=== PATIENT | female | born 1985 | race African-American/Black ===

== ENCOUNTER 2023-12-16 13:39 | Emergency (ER) | payer BC, MEDICAID, OTHER ==
[~2023-12-16] VITALS: Ht 167.6 cm; Wt 81.0 kg
[2023-12-16 13:41] VITALS: O2SAT 99
[2023-12-16 14:10] LABS: BASOPHILS % 0.3 % (0.0-2.0); HEMATOCRIT. 44.4 % (36.0-48.0); HEMOGLOBIN. 14.7 g/dL (12.0-16.0); LYMPHOCYTES % 21.2 % (20.0-50.0); MEAN CORPUSCULAR HEMOGLOBIN 31.1 pg (28.0-32.0); MEAN CORPUSCULAR HGB CONC 33.2 g/dL (31.0-37.0); MEAN CORPUSCULAR VOLUME 93.8 fL (81.0-99.0); MEAN PLATELET VOLUME 8.4 fl (7.4-10.4); MONOCYTES % 4.9 % (2.0-8.0); NEUTROPHILS % 72.6 % (40.0-76.0); PLATELET 235 x1000/uL (130-400); RED BLOOD CELL COUNT 4.73 mill/uL (4.2-5.4); RED CELL DISTRIBUTION WIDTH 15.2 % (11.6-14.6); WHITE BLOOD COUNT 10.6 x1000/uL (4.5-11.0)
[2023-12-16] MEDS: ONDANSETRON HCL 4MG/2ML INJ IV STA (14:15)
[2023-12-16] MEDS: SODIUM CHLORIDE 0.9% 1,000 ML IV ONE (14:15)
[2023-12-16] MEDS: FAMOTIDINE 20MG/2ML VIAL IV STA (14:15)
[2023-12-16 14:48] LABS: HCG SCREEN NEGATIVE
[2023-12-16] MEDS: KETOROLAC 30MG/ML VIAL IV ONE (14:55)
[2023-12-16 15:26] LABS: INR 1.1
[2023-12-16 15:37] LABS: ALANINE AMINOTRANSFERASE 45 IU/L (10-49); ALBUMIN 4.5 g/dL (3.2-4.8); ASPARTATE AMINOTRANSFERASE 93 IU/L (<34); CALCIUM 8.9 mg/dL (8.7-10.4); CARBON DIOXIDE 26 mEq/L (21-32); CHLORIDE 105 mEq/L (98-107); CREATININE 0.7 mg/dL (0.6-1.0); GLUCOSE 76 mg/dL (70-105); POTASSIUM 3.9 mEq/L (3.5-5.1); PROTEIN TOTAL 7.4 g/dL (6.0-8.3); SODIUM 139 mEq/L (136-145); UREA NITROGEN BLOOD 12 mg/dL (9-23)
[2023-12-16] MEDS ORDERED: PROT40 MT (17:23)
[2023-12-16] MEDS ORDERED: TRAZ-251 MT (17:23)
[2023-12-16 18:04] VITALS: BP 115/63; PULSE 78; RESP 17; TEMP 98.6
== END 2023-12-16 17:58 | disposition home or self-care (01) ==
LOC: ER 13:57
DX: K29.70 Gastritis, unspecified, without bleeding (principal)
CPT/HCPCS: 80053; 84703; 83690; 85025; 85610; 36415; 74176; 76856; 96361; 96374; 96375; 99285; J3490; J1885; J2405; J7030; Z7610 ×2